=== PATIENT | female | born 1945 ===

== ENCOUNTER 2017-11-25 07:17 | Day surgery (SDC) | payer MEDICARE, OTHER ==
[2017-11-19 13:24] VITALS: BMI 25.1
[2017-11-25 08:05] LABS: BASO # 0.01 K/mm3 (0.0-2.0); BASO % 0.2 % (0.0-3.0); EOS # 0.1 (0.0-0.7); EOS % 1.8 % (1.5-5.0); GRAN # 4.17 (1.4-6.5); GRAN % 66.9 % (50.0-68.0); LYMPH # 1.5 (1.2-3.4); LYMPH % 24.8 % (22.0-35.0); MEAN CELL VOLUME 89.7 fl (80.0-105.0); MEAN CORPUSCULAR HGB CONC 33.5 g/dl (31.0-37.0); MEAN PLATELET VOLUME 11.3 fl (7.0-11.0); MONO # 0.4 (0.1-0.6); MONO % 6.3 % (1.0-6.0); RBC 4.66 10^6/uL (3.5-6.1); RED CELL DISTRIBUTION WIDTH 12.9 % (11.5-14.5); WHITE BLOOD COUNT 6.2 10^3/ul (4.5-11.0)
[2017-11-25 08:10] LABS: BLOOD UREA NITROGEN 10 mg/dL (7-21); CALCIUM 9.9 mg/dL (8.4-10.5); GFR AFRICAN-AMERICAN > 60; GFR NON-AFRICAN AMERICAN > 60
[2017-11-25 08:13] LABS: INR 1.03 (0.93-1.08); PARTIAL THROMBOPLASTIN TIME 29.8 Seconds (25.1-36.5); PROTHROMBIN TIME 11.8 SECONDS (9.4-12.5)
[2017-11-25] MEDS ORDERED: Midazolam 2 MG/2 ML VIAL ONE (10:10)
[2017-11-25] MEDS ORDERED: Oxycodone/Acetaminophen 5/325 mg Tab PO PRN (10:56)
[2017-11-25] MEDS ORDERED: Sodium Chloride 0.45% 1,000 ML IV SCH (11:00)
[2017-11-25 12:07] VITALS: RESP 18; TEMP 98; O2SAT 97
[2017-11-25 12:26] VITALS: BP 119/65; PULSE 59
--- NOTE | 2017-11-25 19:31 | CT ---
PROCEDURE: CT guided left renal biopsy. HISTORY: 4 cm enhancing complex left renal mass. Evaluate for malignancy. PHYSICIAN(S): Natanael Beckett MD. TECHNIQUE: The relative risks and indications of the procedure were explained to the patient and consent obtained. The patient was placed prone on the CT scanner and preliminary images through the kidneys obtained. Conscious sedation and monitoring were provided throughout the procedure by a nurse. There is a 4 cm complex mass in the lower aspect of the left kidney laterally.. A left posterior approach was selected and the area prepped and draped in the usual sterile fashion. 1% Xylocaine was used to anesthetize the skin and soft tissues. A 17-gauge guiding needle was advanced into the 4 cm complex left renal mass. Its position was confirmed with CT. Using coaxial technique, multiple core biopsies were obtained. The postprocedure images show no evidence of significant hemorrhage. IMPRESSION: 1. CT-guided left renal mass biopsy as described above.
== END 2017-11-25 12:45 | disposition home or self-care (01) ==
LOC: SDS 07:17
PROVIDERS: ATTEND Radiology Vascular & Interventional Radiology
DX: C64.9 Malignant neoplasm of unspecified kidney, except renal pelvis (principal); I10 Essential (primary) hypertension; E78.00 Pure hypercholesterolemia, unspecified; E78.2 Mixed hyperlipidemia; E55.9 Vitamin D deficiency, unspecified; Z68.28 Body mass index [BMI] 28.0-28.9, adult; M85.80 Other specified disorders of bone density and structure, unspecified site; M25.50 Pain in unspecified joint
CPT/HCPCS: 36415; 50200; 77012; 80048; 85025; 85610; 85730; 88305; J2250; J2405; J3010; J7030